=== PATIENT | female | born 1935 | race Caucasian/White ===

== ENCOUNTER 2017-03-15 11:30 | Inpatient (IN) | payer MEDICARE, BC ==
[~2017-03-15] VITALS: Ht 152.4 cm; Wt 47.7 kg
--- NOTE | ~2017-03-15 | HP ---
PATIENT'S NAME: SABRINA AVILA [facility] AGE: 81 Y [address] ROOM: [address] [place], [place] [address] LOCATION: [facility] ADMIT DATE: 03/15/2017 History & Physical DISCHARGE DATE: FAMILY PHYSICIAN: PHYSICIAN, UNKNOWN ATTENDING PHYSICIAN: Marycruz DREW DATE OF SERVICE: CHIEF COMPLAINT: Atrial fibrillation with RVR. HISTORY OF PRESENT ILLNESS: The patient is an 81-year-old female with past medical history of nonobstructive CAD; rheumatoid arthritis, on chronic prednisone and Orencia; and nocturnal hypoxia on oxygen at night, who presents here with atrial fibrillation with RVR for [facility]. The patient was noted to have elevated heart rate this morning. It felt like her heart was racing and went to [facility] for further evaluation. The patient was noted to have heart rate in 140s and 150s. EKG was done, it shows atrial fibrillation with RVR. The patient's initial blood pressure was in the low and mid 80s of systolic blood pressure. The patient was started on amiodarone drip and Cardiology was called from our facility, Dr. Yesika Marie. The patient was continued on amiodarone drip and was also given 0.25 of digoxin IV x1. Heart rate improved and blood pressure improved. Blood pressure increased to systolic blood pressure in the 90s. The patient was transferred to our facility for further care. The patient currently is stable. Blood pressure is stable on amiodarone drip. She denies any chest pain, shortness of breath, abdominal pain, nausea, vomiting, fever, productive cough, or chills. The patient reports that she has a history of dyspnea on exertion and has somewhat progressively getting worse in the past few days. The patient also reports of recent fall on Saturday where she had tripped and hit her head. She denies any loss of consciousness, dizziness, or vertigo during this fall and reports that it was secondary to mechanical fall secondary to trip. The patient has had left heart catheterization in 2013 which showed nonobstructive coronary artery disease and was followed by Dr. Vazquez (s/l). PAST MEDICAL HISTORY: 1. Rheumatoid arthritis. 2. Hypothyroidism. 3. Chronic nocturnal hypoxia, on 2 L oxygen. PAST SURGICAL HISTORY: 1. Hernia repair. PATIENT'S NAME: SABRINA AVILA [facility] AGE: 81 Y [address] ROOM: [id number] [place] [address] LOCATION: [facility] ADMIT DATE: 03/15/2017 History & Physical DISCHARGE DATE: FAMILY PHYSICIAN: PHYSICIAN, UNKNOWN ATTENDING PHYSICIAN: Marycruz DREW 2. Peptic ulcer disease, status post gastrectomy. 3. Left hand surgery. FAMILY HISTORY: Mother had diabetes mellitus, type 2. Father of coronary artery disease. Sister had breast cancer. Brother has emphysema. SOCIAL HISTORY: Lives by herself at [facility]. Reports that last smoke was in 1989. She denies use of alcohol and lives by herself. However, states her daughter lives close by and take care of her. MEDICATIONS: Currently being reconciled. REVIEW OF SYSTEMS: All systems have been reviewed and are negative except for what I mentioned in the HPI. PHYSICAL EXAMINATION: VITAL SIGNS: Temperature 98.3, blood pressure 105/75, heart rate of 114, and saturating 98% on room air. GENERAL APPEARANCE: The patient is alert and awake, lying on bed and appears comfortable. HEENT: Head; normocephalic and atraumatic. The patient face shows moderate bruising with ecchymotic changes around her face bilaterally. Appears to show appearance of regression and resolving hematomas. Eyes; extraocular muscles intact. No bleeding noted. Nose; no nasal discharge. Ears; no ear discharge. CHEST: Bibasilar rales. No rhonchi, rales are heard. HEART: Irregularly irregular. No murmurs, rubs, or gallops. ABDOMEN: Soft, nontender, and nondistended. Bowel sounds present. Old surgical scar. EXTREMITIES: The patient has bilateral ulnar deviation and osteoarthritic changes in her bilateral foot. SKIN: Poor turgor and ecchymotic changes around the hip and face as stated above. POULTRY VETERINARIAN: Alert and oriented x3. Motor and sensory grossly intact. LABORATORY DATA: Laboratories done at the outside hospital shows a troponin of 0.2. Sodium of 134, CO2 of 28, creatinine of 0.8, blood glucose of 143, magnesium is 1.9, and TSH is 3.74. Hemoglobin of 13.0, white blood cell count of 7.5, and platelets of 227,000. PATIENT'S NAME: SABRINA AVILA [facility] AGE: 81 Y [address] ROOM: [id number] [place] [address] LOCATION: [facility] ADMIT DATE: 03/15/2017 History & Physical DISCHARGE DATE: FAMILY PHYSICIAN: PHYSICIAN, UNKNOWN ATTENDING PHYSICIAN: Marycruz DREW EKG shows atrial fibrillation with RVR, some concerning ST changes for ST- elevation in inferior leads. ASSESSMENT AND PLAN: 1. Atrial fibrillation with a rapid ventricular response. The patient is an 81-year-old female with a past medical history of nonobstructive coronary artery disease and rheumatoid arthritis who presents here with atrial fibrillation with a rapid ventricular response and labile blood pressure. The patient received digoxin 0.25 mg and was started on amiodarone with improvement of blood pressure and heart rate. Currently, patient's heart rate is in low 110s. To continue amiodarone drip. We will start the patient on Lopressor 12.5 mg q.6 hours with holding parameters. We will acquire echocardiogram to further investigate structural disease. Cardiology is consulted, Dr. Yesika Marie has seen the patient. Plan is to continue current medications, acquire echocardiogram, and probable transesophageal echocardiography with cardioversion if needed. 2. Xmq-[id number]-yekzopz elevation myocardial infarction. Etiology most likely type 2 [id number] elevation myocardial infarction secondary to demand with atrial fibrillation with rapid ventricular response. However, EKG shows nonspecific ST changes concerning for ST elevation. EKG reviewed by Dr. Yesika Marie. The patient currently denies chest pain. We will trend troponin and follow the patient clinically. We will acquire echocardiogram to see wall motion abnormalities. Trend troponin. The patient has already received Lovenox 1 mg/kg at the outside hospital. We will hold Lovenox for now as patient also have a recent history of fall and some ecchymotic changes on her face. We will acquire CT head and face to further investigate head bleed. If there is no bleeding, we will consider starting the patient on apixaban 2.5 mg b.i.d. 3. Chronic prednisone use. The patient is currently on chronic prednisone due to rheumatoid arthritis. However, does not remember the dose. Since patient is having some stress, we will start patient on stress dose steroids. We will start the patient on Solu-Cortef 50 mg t.i.d. and follow up clinically. 4. Labile blood pressure has improved with IV fluids and control of heart rate. We will follow patient clinically. We will try to avoid IV fluid as patient noted to have some bibasilar rales and history of dyspnea on exertion has been increasing lately and also mild elevation of BNP at the outside hospital at 666. We will acquire echocardiogram for now to further investigate that. 5. Decompensated diastolic heart failure. Last echocardiogram shows ejection fraction of 60%. The patient currently has some dyspnea on exertion, has been increasing lately and elevated BNP. Etiology most likely secondary to atrial fibrillation with rapid ventricular response. We will just try to control the underlying etiology. We will hold diuretics for now as the patient is maintaining oxygen saturation on room PATIENT'S NAME: SABRINA AVILA [facility] AGE: 81 Y [address] ROOM: [place] [address] LOCATION: [facility] ADMIT DATE: 03/15/2017 History & Physical DISCHARGE DATE: FAMILY PHYSICIAN: PHYSICIAN, UNKNOWN ATTENDING PHYSICIAN: Marycruz DREW and has somewhat labile blood pressure. We will follow patient clinically. 6. Rheumatoid arthritis. The patient is on Orencia IV once a month. She has gotten her dose this , to continue as outpatient. 7. History of peptic ulcer disease. We will start the patient on Protonix 40 mg b.i.d. 8. Severe protein-calorie malnutrition. We will consult dietitian. 9. History of recent fall with ecchymotic changes on the face which appears to be resolving. We will acquire CT head and face for further investigation. I have personally reviewed the patient's medical record including but not limited to blood work and old catheterization report. Total time spent with the patient is greater than 70 minutes, more than 50% of the time spent in direct patient's care and patient consultation. Case was initially reviewed with Dr. Gregorio from [place]. Case was also reviewed with Dr. Yesika Marie, our grinder set up operator centerless. Case also reviewed with nursing staff and patient. All the patient's questions were answered with satisfaction. A long discussion was made about anticoagulation. The patient has elevated CHADS- VASc score and is at risk for a stroke, however, she has a recent fall and some ecchymotic changes. The patient was discussed about starting anticoagulation if her initial CT is unremarkable. The patient reports that she wanted to be started on anticoagulation. Discussion was also made about risk of bleeding with anticoagulation, but however the patient also have elevated CHADS-VASc score, and at risk for stroke and especially if she needs cardioversion. The patient understands the risk and plan to continue the use of anticoagulation for now. Code status on admission is full code. MD GILMA HOLDEN/alesia /[id number] D: [id number] T: [id number] HISTORY & PHYSICAL
--- NOTE | ~2017-03-15 | ECHO ---
Transthoracic Echocardiography Report (TTE) Demographics Patient Name SABRINA AVILA Date of Study 03/16/2017 Patient Number [id number] Visit Number [id number] Date of 1935 Room Number [id number] Gender Female Number Age 81 year(s) Referring Frank Napoles Registered Dietetic Technician Alis Huggins Physician [facility] Physician Interpreting Frank Napoles Handbag Designer Physician Supervising Ordering MD/MLP Physician Nurse Stress Blood Tester Fowl Conclusions Contractility Score Summary Normal Left Ventricular contractility was noted. Summary The estimated left ventricular ejection fraction is 65%. Moderate concentric left ventricular hypertrophy. Diastolic function indeterminate due to patient's arrhythmia. Mildly reduced right ventricular function. The left atrium is severely dilated. Moderate to severe mitral regurgitation by color Doppler. There is trivial to mild aortic regurgitation by color Doppler. Mild tricuspid regurgitation by color Doppler. There is mild pulmonary hypertension. The pulmonary pressure (RVSP) is 47 mmHg. Procedure Type of Study TTE procedure:2D Echocardiogram. Procedure Date Date: 03/16/2017 Start: 09:42 AM Study Location: Inpatient Portable Technical Quality: Adequate visualization Patient Status: Routine HR: 97 bpm BP: 120/85 mmHg M-Mode/2D Measurements LV Diastolic Dimension: 2.52 cm LV Systolic Dimension: 1.64 cm LV Septum Diastolic: 1.35 cm LV PW Diastolic: 1.3 cm AO Root Dimension: 2.8 cm Cardiac Output: 5.42 l/min AV Cusp Separation: 1.3 cm RV Diastolic Dimension: 2.34 cm LA volume: 58 ml LVOT: 2 cm RV Base: 2.48 cm LVOT VTI: 17.8 cm RV Mid: 2.82 cm LV Stroke volume: 55.89 ml TAPSE: 1.26 cm TDI-S': 9.32 cm/s Doppler Measurements AV Peak Velocity: 1.6 m/s MV Peak E-Wave: 1.57 m/s AV Peak Gradient: 10.24 mmHg AV Mean Gradient: 5 mmHg MV P1/2t: 42 msec LVOT Peak Velocity: 1.01 m/s TR Velocity:3.07 m/s PV Peak Velocity: 1.07 m/s TR Gradient:37.7 mmHg PV Peak Gradient: 4.58 mmHg Estimated RAP:10 mmHg Estimated PASP: 47.7 mmHg Estimated RVSP: 48 mmHg E' Septal Velocity: 0.1 m/s Findings Left Ventricle Moderate concentric left ventricular hypertrophy. Diastolic function indeterminate due to patient's arrhythmia. Right Ventricle Mildly reduced right ventricular function. Left Atrium The left atrium is severely dilated. Right Atrium Normal right atrial size. IVC measures 1.7cm with inspiratory collapse. Mitral Valve Moderate to severe mitral regurgitation by color Doppler. Mild to moderate mitral annular calcification. Aortic Valve There is mild aortic regurgitation by color Doppler. The aortic valve is moderately sclerotic. Tricuspid Valve Mild-moderate tricuspid regurgitation by color Doppler. There is mild pulmonary hypertension. The pulmonary pressure (RVSP) is 47 mmHg. Pulmonic Valve Mild pulmonic valve regurgitation by color Doppler. Pericardial Effusion No evidence of pericardial effusion. Pleural Effusion No evidence of pleural effusion. Contractility Score LV regional wall motion:(0-Non visualized 1-Normal 2-Hypokinesis 3-Akinesis 4-Dyskinesis 5-Aneurysm) Signature dtt: ILEANA BARRAZA dtd: 03/16/17 0942 Physician Self Edit
--- NOTE | ~2017-03-15 | CON ---
PATIENT'S NAME: SABRINA AVILA [facility] AGE: 81 Y [address] ROOM: [address] [place] [address] LOCATION: GICU ADMIT DATE: 03/15/2017 Consultation DISCHARGE DATE: FAMILY PHYSICIAN: PHYSICIAN, UNKNOWN ATTENDING PHYSICIAN: Marycruz CHERRY REFERRING PHYSICIAN: ILEANA BARRAZA MD REQUESTING PROVIDER: Dr. Cherry. REASON FOR CONSULTATION: Atrial fibrillation with RVR. CHIEF COMPLAINT: Shortness of breath and palpitations. HISTORY OF PRESENT ILLNESS: The patient is a very pleasant 81-year-old frail elderly female with history of rheumatoid arthritis, on chronic steroid therapy. She also has history of nonobstructive coronary artery disease. She did have a cardiac cath in 2013, and she had FFR measurement of the mid RCA that was attempted. There appeared to be a significant kink in the mid portion due to extreme angulation, but there was difficulty with getting the wire. Actually, the FFR of the RCA was nonischemic. There was also some mild disease in the mid LAD as well about 30%. She reports having palpitations yesterday starting at 1:30 in the morning, that woke her up and that has been persistent throughout the night and this morning, finally her family took her to the emergency room locally, and she was found to be in atrial fibrillation with RVR and hypotension with heart rate in the 150s and systolic blood pressure in the 80s. She was given fluid bolus, but no significant improvement in her systolic blood pressure. I did speak with the ER physician and recommended to start amiodarone drip and consider cardioversion emergently if she is hemodynamically not improving. However, since the patient was awake, alert, and did not have any symptoms, she was transferred to us without urgent cardioversion and continued on the amiodarone drip. She was airlifted and transferred here to our ICU. Upon arrival, the patient is very comfortable. She does not have any chest pain, tightness, pressure, heaviness. No jaw pain or arm pain. She does not appear short of breath. She does report she has chronic dyspnea on exertion. She does feel the palpitations, but she is not lightheaded or dizzy. She reports she has issues with her gait, and she recently tripped and fell, and she has significant bruising in her face secondary to that. She does not have any bleeding issues. No blood in her stool, but she does have significant bruising from aspirin use, so she had to decrease it to taking it PATIENT'S NAME: SABRINA AVILA [facility] AGE: 81 Y [address] ROOM: [place] [address] LOCATION: [facility] ADMIT DATE: 03/15/2017 Consultation DISCHARGE DATE: FAMILY PHYSICIAN: PHYSICIAN, UNKNOWN ATTENDING PHYSICIAN: Marycruz CHERRY only 3 times a week. She does not have any other acute complaints today. She has never had a history of stroke. She does report, however, dyspnea on exertion that is getting progressively worse. No other acute complaints today. Her blood pressure upon arrival is 106/70 mmHg, and her heart rate is in the hundred teens. REVIEW OF SYSTEMS: All review of systems discussed with the patient. Pertinent positives and negatives mentioned in the history of presenting illness. PAST MEDICAL HISTORY: 1. New onset atrial fibrillation. 2. Rheumatoid arthritis. 3. Hyperlipidemia. 4. Nonobstructive coronary artery disease. 5. Osteoporosis and compression fractures. PAST SURGICAL HISTORY: Bilateral hernia repair, hemorrhoidectomy, partial left mastectomy, inguinal hernia repair, partial gastrectomy, left wrist surgery. SOCIAL HISTORY: The patient used to smoke, but she quit in the . No alcohol or illicit drug abuse. FAMILY HISTORY: Negative for premature coronary artery disease or sudden cardiac . MEDICATIONS: We will review medications. The patient does not have a list of her medications right now. PHYSICAL EXAMINATION: VITAL SIGNS: Blood pressure is 106/70, heart rate 110, respirations 18, O2 saturation 96% on room air, afebrile. HEAD: Normocephalic. Significant bruising over her entire face. Mucous membranes moist. Sclerae white. HEART: S1 and S2, tachycardic. Irregular rate and rhythm. LUNGS: Decreased breath sounds at the base. Good exchange anteriorly. ABDOMEN: Soft. Bowel sounds positive. MUSCULOSKELETAL: Significant changes in her musculoskeletal system from the rheumatoid arthritis with significant joint deformity. PATIENT'S NAME: SABRINA AVILA [facility] AGE: 81 Y [address] ROOM: [place] [address] LOCATION: GI ADMIT DATE: 03/15/2017 Consultation DISCHARGE DATE: FAMILY PHYSICIAN: PHYSICIAN, UNKNOWN ATTENDING PHYSICIAN: Marycruz CHERRY NEURO: Grossly intact. Able to move all extremities against gravity. Alert and oriented. No apparent distress. SKIN: Warm and dry. No significant lower extremity edema. LABORATORY DATA: Labs done at the outside hospital showed WBC 7.5, H and H 13 and 41, platelets are 227. Sodium 134, potassium 4.9, BUN 17, creatinine 0.9. Liver enzymes are normal. GFR is greater than 60. Magnesium is 1.9. BNP is 666. Troponin is slightly elevated at 0.2, CK is 60 and CK-MB is 1.5. IMAGING DATA: Chest x-ray shows cardiomegaly with evidence of some increased vascular markings, questionable atelectasis in her right base, and mild prominence of her central vasculature as well. No pleural effusions were noted. EKG: Atrial fibrillation with rate in the 110 range. There are mild ST changes, diffuse and nonspecific. No ST changes suggestive of ischemia or injury pattern. She does have Q-waves in the inferior leads. Cardiac cath: Her RCA has moderate to severe kink at extreme angulation, and FFR that was done in 2013 was nonischemic. She did have some mild disease in the LAD as well. Echocardiogram for 2011 showed normal LV systolic function with almost cavitary obliteration in the mid level of her LV. Her systolic function was 65% to 70%. No significant valvular disease was noted. She did have moderate pulmonary hypertension with RV systolic pressure of 55 mmHg at that time. ASSESSMENT AND PLAN: 1. New onset atrial fibrillation with RVR. 2. History of recent fall with significant bruising on her face. 3. Rheumatoid arthritis, on chronic steroid therapy. 4. History of gastric ulcer, status post gastrectomy. 5. Hyperlipidemia, on statin therapy. 6. Moderate pulmonary hypertension, on an echo done in 2011 with PA systolic pressure of 55 mmHg. PLAN: At this time, her rates are well controlled on amiodarone. We will also add metoprolol if her systolic blood pressure is greater than hundred 12.5 mg p.o. q.6 hours and continue IV amiodarone drip per protocol. We will switch to p.o. loading dose 400 mg p.o. t.i.d. for a week and then 400 mg p.o. b.i.d. for one more week and then 200 mg daily. We will start her on Eliquis 2.5 mg p.o. b.i.d., and see how she does. If her skin is getting worse as the bruising is much worse, we may need to stop it. We will have to monitor her very closely for bleeding issues. I will also start a PPI given her history PATIENT'S NAME: SABRINA AVILA [facility] AGE: 81 Y [address] ROOM: [address] [address] LOCATION: [facility] ADMIT DATE: 03/15/2017 Consultation DISCHARGE DATE: FAMILY PHYSICIAN: PHYSICIAN, UNKNOWN ATTENDING PHYSICIAN: Marycruz CHERRY of ulcer in the past requiring gastrectomy. She needs to be on chronic PPI as well given the need for prednisone use for the rheumatoid arthritis. If she becomes unstable, we will do urgent or emergent cardioversion; however, we will proceed with amiodarone and rate control strategy for now and repeat an echocardiogram as well. If she does not convert into normal sinus rhythm, we will certainly consider cardioversion as an option for her depending on the echocardiogram findings. She is high risk for stroke. Her CHADS-VASc score is 5. Unfortunately, she is at high risk for bleeding too, and we will need to monitor that very closely. Risks and benefits discussed with the patient by myself as well as Dr. Cherry, and the patient is agreeable to attempting to try oral anticoagulation at this time. We will recommend a CT scan to ensure there is no evidence of bleeding given her recent fall and significant bruising in her face. Thank you very much Dr. Cherry for allowing us to participate in the care of Mrs. Avila. ILEANA BARRAZA MD AT/modl /[id number] d: 03/15/172023 t: 03/18/17 1620, CONSULTATION REPORT
--- NOTE | ~2017-03-15 | DS ---
PATIENT'S NAME: SABRINA AVILA [facility] AGE: 81 Y [address] ROOM: [address] [place], [place] [address] LOCATION: GPCU ADMIT DATE: 03/15/2017 Discharge Summary DISCHARGE DATE: 03/18/2017 FAMILY PHYSICIAN: Physician, Unknown ATTENDING PHYSICIAN: Marycruz DREW PRINCIPAL DIAGNOSES: 1. Atrial fibrillation with rapid ventricular rate, hemo cardioverted to normal sinus rhythm with amiodarone and Eliquis. 2. Rheumatoid arthritis on prednisone, methotrexate, and Prolia. 3. Chronic hypoxic respiratory failure with 2 L of oxygen at nighttime. 4. Hypothyroidism. 5. Nonobstructive coronary artery disease. 6. Facial ecchymoses, secondary to recent fall. HOSPITAL COURSE: An 81-year-old very pleasant lady with a past medical history of nonobstructive coronary artery disease, rheumatoid arthritis, as well as chronic respiratory failure with an oxygen at nighttime presents to [facility] with palpitation, where she was diagnosed with atrial fibrillation with RVR. She was transferred here to [facility] for further medical care. She was found to have elevated troponin level, which was deemed secondary to atrial fibrillation with RVR. Her blood pressure was initially low in the mid 80s and she was started on amiodarone drip. Because of high CHADS-VASC score, she was also started on Eliquis 2.5. During the course of the hospitalization, she converted back to normal sinus. At admission to the hospital, a CAT scan of the head and brain was done, which did show scalp swelling and hematoma formation in the left frontal, but no fracture was noted. Echocardiography was also done in this hospitalization, which showed ejection fraction of 65% with moderate concentric left ventricular hypertrophy. DISCHARGE MEDICATIONS: Included: 1. Amiodarone 200 mg p.o. everyday. 2. Apixaban 2.5 mg p.o. twice daily. 3. Atorvastatin 20 mg p.o. every night at bedtime. 4. Prednisone 2.5 mg p.o. everyday. 5. Levothyroxine 50 mcg p.o. q.a.m. 6. Tylenol 1000 mg p.o. every 6 hours p.r.n. 7. Celecoxib 200 mg p.o. everyday. 8. Famotidine 40 mg p.o. twice daily. 9. Prolia 60 mg subcu every 180 days. 10. Vitamin D3 1000 units p.o. everyday. 11. Ascorbic acid vitamin C 250 mg p.o. everyday. 12. Aspirin 81 mg 3 days a week. 13. Glucosamine 1 tablet p.o. everyday. PATIENT'S NAME: SABRINA AVILA [facility] AGE: 81 Y [address] ROOM: [place] [address] LOCATION: GPCU ADMIT DATE: 03/15/2017 Discharge Summary DISCHARGE DATE: 03/18/2017 FAMILY PHYSICIAN: Physician, Unknown ATTENDING PHYSICIAN: Marycruz DREW 14. Abatacept 1 dose IV every 28 days unknown dose. 15. New medications are amiodarone and Eliquis. HEMODYNAMICS ON DISCHARGE: Stable. ACTIVITIES: As tolerated. PROGRESS NOTE FROM THE DAY OF THE DISCHARGE: SUBJECTIVE: No chest pain, no palpitation, no shortness of breath, headache, or fever. OBJECTIVE: VITAL SIGNS: 103/66, 86, 98.6, 16, in room air, no acute distress, alert and oriented x3. HEENT: Head: Atraumatic, normocephalic. Facial ecchymoses noted. HEART: S1, S2. No murmurs, gallops, or rubs. LUNGS: Clear to auscultation bilaterally. ABDOMEN: Soft, nontender, nondistended. Bowel sounds present. EXTREMITIES: No clubbing, cyanosis, or edema. LABORATORY DATA: All lab work in the hospitalization remained within normal limit. FOLLOW UP: The patient will follow up with Dr. Child at [facility] within 1 month with a CBC, BMP, and EKG. ACTIVITY: As tolerated. DIET: Cardiac diet. MD MATTHEW WEBB/alesia /[id number] d: 03/19/17 0254 t: 03/24/17 1323, DISCHARGE SUMMARY
[2017-03-15] MEDS ORDERED: CELEBREX200 MG PO (15:00)
[2017-03-15] MEDS ORDERED: PEPCID20 MG PO (15:01)
[2017-03-15] MEDS ORDERED: LEVOTHROID (SY50 MCG PO (15:01)
[2017-03-15] MEDS ORDERED: DELTASONE2.5 MG PO (15:01)
[2017-03-15] MEDS ORDERED: LIPITOR20 M1 PO (15:01)
[2017-03-15] MEDS ORDERED: PROLIA60 MG/ML SUB-Q (15:03)
[2017-03-15] MEDS ORDERED: VITAMIN C250 MG PO (15:04)
[2017-03-15] MEDS ORDERED: VITAMIN D1000 UNIT PO (15:04)
[2017-03-15] MEDS ORDERED: MACUHEALTH PO (15:05)
[2017-03-15] MEDS ORDERED: ASPIRIN LO-DOSE81 MG PO (15:05)
[2017-03-15] MEDS ORDERED: OSTEO BI-FLEX1 EACH PO (15:06)
[2017-03-15] MEDS ORDERED: PREVAGEN SUPPLEMENT PO (15:08)
[2017-03-15] MEDS ORDERED: TYLENOL EXTRA500 MG PO (15:08)
[2017-03-15] MEDS ORDERED: ORENCIA250 MG IV (15:09)
--- NOTE | 2017-03-15 17:16 | NUR ---
SIGNIFICANT EVENT: PATIENT ALERT, ORIENTED X3. PUPILS EQUAL AND REACTIVE. MOVES ALL 4 EXTREMTIIES SPONTANEOUSLY AND TO COMMANDS. EQUAL STRENGTH THROUGHOUT. NO FACIAL ASYMMETRY. DENIES ANUMBNESS, TINGLING, OR PAIN. DENIES CHEST PAIN, HEADACHES, N/V. CT OF HEAD AND FACE COMPLETED TODAY. PULSES PALPABLE THROUGHOUT. BP STABLE, SBP >90, MAP>65. AFEBRILE. AFIB RHYTHM. HR 120-130S ON ADMITTION, POST AMIODARON DRIP HEART RATES 80-90S. EKG AT BEDSIDE, EKG AND 2D ECHO IN AM. PATIENT ON ROOM AIR, SAT LOWER TO MID 90S. WHEN SLEEPING, 1 L NC APPLIED R/T DESATS INTO MID 80S/SHALLOW BREATHING. BOWEL SOUNDS ACTIVE, NO BM IN THE HOSPITAL TODAY. CARDIAC DIET, NO ISSUES SWALLOWING. BECERRIL PRIOR TO ADMIT, ADEQUATE URINE OUTPUT. PATIENT REPOSITIONED EVERY 2 HOURS. 2PIV, AMIODARONE DRIP INFUSING AT 0.5 MCG/HR X18 HOURS NO COMPLICATIONS WITH PIV. FOLLOW UP: CONTINUE TO MONITOR, 2D ECHO AND EKG IN AM
--- NOTE | 2017-03-16 03:31 | NUR ---
Significant Event: Patient alert and oriented. Repositions self in bed. Tylenol given x1 for right shoulder pain with relief noted. Remains in A-Fib with rates 90-100s. SBP 90-1 teens. Hurtado patent with good urine output noted. Amio drip continues per protocol. Pleasant and cooperative with cares. Follow up: continue to monitor.
[2017-03-16 08:53] LABS: ANION GAP 17.2 (10.0-19.0); BLOOD UREA NITROGEN 11 mg/dL (6-24); CALCIUM 7.7 mg/dL (8.5-10.5); CHLORIDE 108 mMol/L (96-110); CO2 22 mMol/L (22-32); CREATININE 0.6 mg/dL (0.5-1.1); ESTIMATED GFR (MDRD EQUATION) > 60; POTASSIUM 4.2 mMol/L (3.7-5.1); SODIUM 143 mMol/L (135-145)
[2017-03-16 09:31] LABS: BASOPHIL % 0.1 %; HEMATOCRIT 40.1 % (30.0-46.0); HEMOGLOBIN 12.5 g/dL (10.0-15.0); IMMATURE GRANULOCYTE % 0.4 %; LYMPHOCYTE # 0.9 K/uL (0.8-4.0); LYMPHOCYTE % 12.5 %; MCH 27.5 pg (27.0-34.0); MCHC 31.2 gm/dL (32.0-36.5); MCV 88.3 fl (83.0-98.0); MONOCYTE # 0.2 K/uL (0.0-1.0); MONOCYTE % 2.9 %; MPV 9.7 fl (9.4-12.4); NEUTROPHIL # (ANC) 6.1 K/uL (1.8-7.8); NEUTROPHIL % 84.1 %; NRBC % 0 /100WBC (0-0.00); PLATELET COUNT 230 K/uL (150-450); RBC 4.54 M/uL (3.00-5.00); RDW-CV 14.7 % (11.9-14.6); WBC 7.3 K/uL (4.0-11.0)
--- NOTE | 2017-03-16 12:19 | NUR ---
Patient alert/oriented x 3. Vitals stable. Room air during the day, 2L oxygen at night as at home. Remains in A-fib, rates, 90-100's. C/O right shoulder pain, Tylenol last given at 1058 with relief noted. Hurtado catheter for strict I&O, blood tinged at times due to spasms; 1000 ml UOP. Bumex 1 mg IVP x1 this am. Bruising to face, behind bilateral ears, anterior neck and mid upper chest; bruising to R) hip from fall last week. Saline lock to R) AC; Amiodarone continues at 0.5 mg/hr into L) Posterior Wrist. Transferring to PCU.
--- NOTE | 2017-03-16 16:48 | NUR ---
Significant Event: A/O x3, cooperative with cares. VS, SBP 110, HRs 60-70s, on room air. Sometime between being unhooked from telemetry in ICU et put back on upon arrival to PCU patient converted to sinus rhythm. 15 beats of V tach at 1352; doctors notified et orders recieved. Continues on amiodarone gtt per protocol; will be done at 1900. Hurtado patent with 300 ml out since arriving to PCU. Up with assist of 1 to bathrom; up in chair. Follow up:
--- NOTE | 2017-03-16 17:04 | NUR ---
Significant Event: A/O x3, cooperative with cares. VSS, SBP 110, HRs 60-70s, on room air. Patient converted during the transfer to PCU when wasn't on the monitor. Did have 15 beats of Vtach at 1352; doctors notified et orders recieved. Remains on the amiodarone gtt per protocol; will be complete at 1900. Hurtado patent with 300 ml out since arriving on PCU; is blood tinged at times. Up with assist of 1 to the bathroom. Follow up:
--- NOTE | 2017-03-17 04:46 | NUR ---
Significant Event: Pt A&Ox3. VS stable, remains on RA during the day. Pt has been running patria throughout the night. Did not give either 2300 or 0500 dosage of metoprolol d/t heart rate. Genesis d/c'd @ 0346 this AM. Urine continues to remain pink-tinged with small clots. PIV in RAC, SL; Lt wrist, SL. Up x1 assist with gaitbelt. Severe bruising throughout body d/t fall prior to admission. Follow up: Continue plan of care.
[2017-03-17 06:45] LABS: HEMOGLOBIN 11.9 g/dL (10.0-15.0); IMMATURE GRANULOCYTE % 0.5 %; LYMPHOCYTE # 1.1 K/uL (0.8-4.0); LYMPHOCYTE % 13.6 %; MCH 27.9 pg (27.0-34.0); MCHC 32.2 gm/dL (32.0-36.5); MCV 86.9 fl (83.0-98.0); MONOCYTE # 0.5 K/uL (0.0-1.0); MONOCYTE % 6.2 %; MPV 9.5 fl (9.4-12.4); NEUTROPHIL # (ANC) 6.1 K/uL (1.8-7.8); NEUTROPHIL % 79.7 %; NRBC % 0 /100WBC (0-0.00); PLATELET COUNT 202 K/uL (150-450); RBC 4.26 M/uL (3.00-5.00); RDW-CV 14.6 % (11.9-14.6); WBC 7.7 K/uL (4.0-11.0)
[2017-03-17 07:06] LABS: ANION GAP 10.8 (10.0-19.0); BLOOD UREA NITROGEN 15 mg/dL (6-24); CALCIUM 7.8 mg/dL (8.5-10.5); CHLORIDE 103 mMol/L (96-110); CO2 30 mMol/L (22-32); CREATININE 0.7 mg/dL (0.5-1.1); ESTIMATED GFR (MDRD EQUATION) > 60; POTASSIUM 3.8 mMol/L (3.7-5.1); SODIUM 140 mMol/L (135-145)
[2017-03-17 09:52] LABS: BILIRUBIN URINE NEGATIVE (NEGATIVE); BLOOD URINE 250 /UL (NEGATIVE); COLOR URINE RED (YELLOW); GLUCOSE URINE 100 mg/dL (NEGATIVE); KETONE URINE NEGATIVE (NEGATIVE); LEUKOCYTES URINE 500 /UL (NEGATIVE); NITRITE URINE POSITIVE (NEGATIVE); PROTEIN URINE 100 mg/dL (NEGATIVE); TURBIDITY URINE 3+ (CLEAR); UROBILINOGEN URINE 1 mg/dL (NORMAL)
[2017-03-17 10:00] LABS: EPITHELIAL URINE RARE #/HPF (NEGATIVE); RBC URINE FULL FIELD #/HPF (NEGATIVE)
[2017-03-17 10:01] LABS: BACTERIA URINE NEGATIVE (NEGATIVE)
--- NOTE | 2017-03-17 17:05 | NUR ---
Significant Event: A/O x3, cooperative with cares. VSS, SBPs 120-140s, HRs 50-60s, on room air. Tylenol given x1 for c/o R) shoulder pain, relief noted. Voided multiple times this shift; urine has lightened as shift has progressed et now is pink tinged. Urine specimen collected et sent to lab. Care management to see tomorrow in regards to gait strengthening at home. PT/OT to consult; up with assist of 1 to bathroom. Follow up:
--- NOTE | 2017-03-18 04:52 | NUR ---
Significant Event: Pt A&Ox3. Has had lots of shoulder pain overnight. Tylenol brought little relief. Held metoprolol d/t heart rate. HR's have been staying in the 60's with little dips to 50's. Urine still remains bloody. BP's 120's-130's. SBA with gaitbelt up to bathroom. Follow up: Continue plan of care.
[2017-03-18] MEDS ORDERED: CORDARONE,PACE200 MG PO (13:48)
[2017-03-18] MEDS ORDERED: ELIQUIS2.5 MG PO (13:49)
--- NOTE | 2017-03-18 16:08 | NUR ---
Introduced self and role of care management to pt and her two daughters. She lives alone in [facility] but she has 3 daughters in the area that help out quite a bit. She does her own meds, has [employer] and goes out to eat for lunch and supper for the most part. She does not use any dme but is a aware she had a fall and does have a walker to use if needed because she will be on a blood thinner. She denies the need for hhc but would like outpt pt/ot and a script will be given. WIll assist as needed.
--- NOTE | 2017-03-18 16:20 | NUR ---
Significant Event: A/O x3, cooperative with cares. VSS, SBPs 120-140s, HRs 60-70s, on room air. No c/o pain. Lopressor held this AM. Up to bathroom with SBA. Ambulate myers with physical therapy. Dismissal instructions given to patient et daughter; verbalized understanding. Dismissed to front lobby per w/c accompanied by transport staff et daughter Follow up:
== END 2017-03-18 14:48 | disposition disaster alternative care site (69) | DRG 308 ==
LOC: GICU 12:16 → GPCU 12:16 → GICU 03-16 03:56 → GPCU 03-16 13:28
PROVIDERS: Internal Medicine Interventional Cardiology; ADMIT Internal Medicine
PROC: B246ZZZ Ultrasonography of Right and Left Heart (ICD-10-PCS; principal; 2017-03-16)
DX: I48.91 Unspecified atrial fibrillation (principal); E43 Unspecified severe protein-calorie malnutrition; I50.33 Acute on chronic diastolic (congestive) heart failure; I47.2 Ventricular tachycardia; J96.11 Chronic respiratory failure with hypoxia; I27.2 Other secondary pulmonary hypertension; E87.70 Fluid overload, unspecified; Z68.1 Body mass index [BMI] 19.9 or less, adult; E03.9 Hypothyroidism, unspecified; E78.5 Hyperlipidemia, unspecified; I25.10 Atherosclerotic heart disease of native coronary artery without angina pectoris; M06.9 Rheumatoid arthritis, unspecified; Z91.81 History of falling
CPT/HCPCS: J0282; J1720; J7060

== ENCOUNTER → 2017-03-15 | Outpatient (CLI) | payer MEDICARE, BC ==
[~2017-03-15] MED LIST: ASPIRIN LO-DOSE81 MG PO; CELEBREX200 MG PO; CORDARONE,PACE200 MG PO; DELTASONE2.5 MG PO; ELIQUIS2.5 MG PO; LEVOTHROID (SY50 MCG PO; LIPITOR20 M1 PO; MACUHEALTH PO; ORENCIA250 MG IV; OSTEO BI-FLEX1 EACH PO; PEPCID20 MG PO; PREVAGEN SUPPLEMENT PO; PROLIA60 MG/ML SUB-Q; TYLENOL EXTRA500 MG PO; VITAMIN C250 MG PO; VITAMIN D1000 UNIT PO
== END | disposition disaster alternative care site (69) ==
LOC: GAIR 11:43
DX: I49.8 Other specified cardiac arrhythmias (principal); I95.9 Hypotension, unspecified; R42 Dizziness and giddiness; R00.2 Palpitations; Z79.52 Long term (current) use of systemic steroids
CPT/HCPCS: A0422; A0431; A0436